=== PATIENT | female | born 1945 | race Caucasian/White ===

== ENCOUNTER 2018-06-26 09:14 | Outpatient (CLI) | payer MEDICARE, OTHER ==
--- NOTE | 2018-06-27 16:01 | MMO ---
MAMMOGRAM DIGITAL SCREENING BILATERAL: DATE: 06/26/18 HISTORY: 72-year-old female for routine bilateral screening mammogram. COMPARISON: 09/12/16 and 08/04/15. TECHNIQUE: Digital mammographic views. Computer-aided detection (CAD) utilized. FINDINGS: There are scattered areas of fibroglandular density. There is no evidence of suspicious mass, suspicious calcifications, or architectural distortion. The re is no significant interval change since the prior mammogram. IMPRESSION: 1. BIRADS 1 - Negative. 2. Recommendation: routine bilateral annual screening mammogram (unless the patient develops suspici ous clinical findings that would warrant earlier imaging follow up). kathleen [] POS: JESSIKA
== END 2018-06-26 09:15 | disposition home or self-care (01) ==
LOC: SCSMAMMO 09:14
PROVIDERS: ATTEND Obstetrics & Gynecology
DX: Z12.31 Encounter for screening mammogram for malignant neoplasm of breast (principal)
CPT/HCPCS: 77067

== ENCOUNTER 2019-05-25 13:29 | Outpatient (CLI) | payer MEDICARE, OTHER ==
--- NOTE | 2019-05-25 15:28 | BD ---
DEXA BONE DENSITY: Date: 05/25/19 HISTORY: 73-year-old female. Screening study. COMPARISON: 08/04/15. FINDINGS: Lumbar Spine: BMD (g/cm2) L1 0.980 T-Score: -0.1 Z-Score: 2.0 L2 1.065 T-Score: 0.3 Z-Score: 2.7 L3 1.135 T-Score: 0.5 Z-Score: 3.0 L4 1.099 T-Score: 0.3 Z-Score: 2.9 L1-L4 1.074 T-Score: 0.2 Z-Score: 2.6 08/04/15: 1.123, 0.7, -0.4, 6.7 BMD change vs. baseline: -4.7% BMD change vs. previous: -4.4% Femoral Neck: 0.788 T-Score: -0.5 Z-Score: 1.5 Total Femur: 0.927 T-Score: -0.1 Z-Score: 1.6 08/04/15: 0.993, 0.4 BMD change vs. baseline: -9.9% BMD change vs. previous: -6.6% IMPRESSION: 1. LUMBAR SPINE: WHO classification normal. Fracture risk not increased. 2. FEMORAL NECK: WHO classification normal. FRAX not reported because all T-Scores are at and above -1.0. POS: OFF
== END 2019-05-25 13:30 | disposition home or self-care (01) ==
LOC: BICMAMMO 13:29
PROVIDERS: ATTEND Obstetrics & Gynecology
DX: Z13.820 Encounter for screening for osteoporosis (principal)
CPT/HCPCS: 77080

== ENCOUNTER 2019-10-01 10:27 | Outpatient (CLI) | payer MEDICARE, OTHER ==
--- NOTE | 2019-10-01 10:55 | MMO ---
Bilateral MAMMO Bilat Screen [facility]. CLINICAL HISTORY: Patient is 74 years old and is seen for screening. The patient has no family history of breast cancer. The patient has no personal history of cancer. VIEWS: The views performed were: bilateral craniocaudal with tomosynthesis and bilateral mediolateral oblique with tomosynthesis. FILMS COMPARED: The present examination has been compared to prior imaging studies performed at [facility] on 04/05/2014, 08/04/2015, 09/12/2016 and 06/26/2018. This study has been interpreted with the assistance of computer-aided detection. MAMMOGRAM FINDINGS: There are scattered fibroglandular densities. There are no suspicious masses, suspicious calcifications, or new areas of architectural distortion. IMPRESSION: THERE IS NO MAMMOGRAPHIC EVIDENCE OF MALIGNANCY. A ROUTINE FOLLOW-UP MAMMOGRAM IN 1 YEAR IS RECOMMENDED. THE RESULTS OF THIS EXAM WERE SENT TO THE PATIENT. ACR BI-RADS Category 1 - Negative MAMMOGRAPHY NOTE: 1. A negative mammogram report should not delay a biopsy if a dominant of clinically suspicious mass is present. 2. Approximately 10% to 15% of breast cancers are not detected by mammography. 3. Adenosis and dense breasts may obscure an underlying neoplasm. Reported by: Ryan GIBSON Electonically Signed: [id number]
== END 2019-10-01 10:28 | disposition home or self-care (01) ==
LOC: BICMAMMO 10:27
PROVIDERS: ATTEND Obstetrics & Gynecology
DX: Z12.31 Encounter for screening mammogram for malignant neoplasm of breast (principal)
CPT/HCPCS: 77063; 77067